=== PATIENT | male | born 1940 | race Caucasian/White ===

== ENCOUNTER 2021-10-30 14:08 | Inpatient (IN) ==
[2021-10-30] MEDS: *HR* Rivaroxaban 10 MG TABLET PO SCH (18:07)
[2021-10-30] MEDS: Cyanocobalamin (B-12) 1,000 MCG TABLET PO SCH (18:08)
[2021-10-31 07:15] LABS: Basophils % 0.9 %; Eosinophils # 0.1 K/mcL (0.0-0.6); Eosinophils % 2.3 %; Hematocrit 38.8 % (37.5-50.1); Hemoglobin 12.3 g/dL (12.9-16.9); Immature Granulocytes % 0.2 % (0-4); Lymphocytes # 0.7 K/mcL (0.6-4.6); Mean Corpuscular HGB Conc 31.7 g/dL (31.6-35.5); Mean Corpuscular Hemoglobin 31.4 pg (28.0-33.3); Mean Platelet Volume 10.5 fL (9.4-12.4); Monocytes # 0.5 K/mcL (0.0-1.3); Monocytes % 11.1 %; Neutrophils # 3.4 K/mcL (1.6-8.9); Platelet Count 193 K/mcL (140-400); Red Blood Count 3.92 M/mcL (4.19-5.50); Red Cell Distribution Width 13.2 % (11.5-14.5); Segmented Neutrophils % 71.5 %; White Blood Count 4.7 K/mcL (4.3-11.1)
[2021-10-31 07:29] LABS: BUN/Creatinine Ratio 18 (6-26); Blood Urea Nitrogen 17 mg/dL (8-23); Carbon Dioxide 29 mEq/L (23-29); Chloride 104 mEq/L (98-107); Glucose 92 mg/dL (70-105); Osmolality,Calculated 289 (280-300); Potassium 3.9 mEq/L (3.5-5.1); Sodium 139 mEq/L (136-145); eGFR For African Americans > 60 (> 60); eGFR For Non-African Americans > 60 (> 60)
[2021-10-31] MEDS: Metoprolol XL (24 HR) Succ 50 MG TAB.ER.24H PO SCH (09:20)
[2021-10-31] MEDS: Aspirin Enteric Coated 81 MG Tablet PO SCH (09:21)
[2021-10-31] MEDS: Ascorbic Acid 500 MG TABLET PO SCH (09:21)
[2021-10-31] MEDS: Multivit/Ca/Min/Fe/FA 1 TAB TABLET PO SCH (09:21)
[2021-10-31] MEDS: DilTIAZem CD (24hr) 180 MG CAP.ER.24H PO SCH (09:21)
[2021-10-31] MEDS: Finasteride 5 MG TABLET PO SCH (09:22)
[2021-10-31] MEDS: *HR* Rivaroxaban 10 MG TABLET PO SCH (17:50)
[2021-11-01 01:09] VITALS: RESP 14
[2021-11-01 07:38] VITALS: BP 138/78; PULSE 64; TEMP 97.8; O2SAT 91
[2021-11-01] MEDS: Ascorbic Acid 500 MG TABLET PO SCH (08:32)
[2021-11-01] MEDS: Metoprolol XL (24 HR) Succ 50 MG TAB.ER.24H PO SCH (08:32)
[2021-11-01] MEDS: Cyanocobalamin (B-12) 1,000 MCG TABLET PO SCH (08:33)
[2021-11-01] MEDS: Aspirin Enteric Coated 81 MG Tablet PO SCH (08:33)
[2021-11-01] MEDS: DilTIAZem CD (24hr) 180 MG CAP.ER.24H PO SCH (08:33)
[2021-11-01] MEDS: Multivit/Ca/Min/Fe/FA 1 TAB TABLET PO SCH (08:33)
[2021-11-01] MEDS: Finasteride 5 MG TABLET PO SCH (08:33)
== END 2021-11-01 11:28 | disposition home or self-care (01) | DRG 177 ==
LOC: INPGRE 17:04
PROVIDERS: ADMIT Family Medicine; ATTEND Family Medicine